=== PATIENT | male | born 1985 | race Caucasian/White ===

== ENCOUNTER 2018-03-22 18:52 | Emergency (ER) | payer SELFPAY ==
[~2018-03-22] VITALS: Ht 167.6 cm; Wt 102.5 kg
[2018-03-22 18:57] VITALS: BP 119/21
--- NOTE | 2018-03-22 19:10 | NUR ---
33 Y/O M BIB WITH C/O CHEST PAIN SINCE THIS MORNING, PT STATES WHEN HE LAYS DOWN, HE FEELS TIGHTNESS AND WHEEZING WITH COUGH, VSS, EVEN AND UNLABORED BREATHING AT THIS TIME, PT O2 AT 97% AT THIS TIME. PT DENIES N/V/D; SKIN IS INTACT, PINK/WARM/DRY; AAOX4, PERRL, WITH EVEN AND STEADY GAIT; LUNGS CLEAR BL, BREATHING UNLABORED; HR EVEN AND REGULAR, BL PERIPHERAL PULSES PRESENT; BS ACTIVE X4, NO TENDERNESS TO PALPATION, NO HEPATOSPLENOMEGALLY PALPATED, RESONANT TO PERCUSSION; PT STATES 8/10 PAIN AT THIS TIME; VSS; PATIENT POSITIONED FOR COMFORT; HOB ELEVATED; BEDRAILS UP X2; BED DOWN. PMH: NONE RX: NYQUIL
--- NOTE | 2018-03-22 19:10 | NUR ---
EKG BEING PREFORMED BY RAYMUNDO GUZMAN AT BEDSIDE.
--- NOTE | 2018-03-22 19:29 | NUR ---
DR. HERNÁNDEZ AT BEDSIDE EVALUATING.
[2018-03-22] MEDS ORDERED: ALBUTEROL SULFATE/IPRATROPIU 3 ML SOL IH ONE (19:35)
--- NOTE | 2018-03-22 19:39 | NUR ---
flu swab collected at this time and taken to lab.
--- NOTE | 2018-03-22 19:40 | NUR ---
transport technician at bedside.
--- NOTE | 2018-03-22 19:49 | NUR ---
rt at bedside.
--- NOTE | 2018-03-22 20:09 | NUR ---
PT ASKING FOR A BLANKET AT THIS TIME. PT STATES HE HAS CHILLS AND IS VISIBLE SHAKING. PT TEMPERATURE IS 101.9 AT THIS TIME. BERNY DELACRUZ NOTIFIED.
[2018-03-22] MEDS ORDERED: ACETAMINOPHEN EXTRA STRENGTH 500 MG TAB PO ONE (20:10)
[2018-03-22] MEDS ORDERED: IBUPROFEN 400 MG TAB PO ONE (20:10)
[2018-03-22 20:39] VITALS: BP 120/78
--- NOTE | 2018-03-22 20:40 | NUR ---
Patient discharged with v/s stable. Written and verbal after care instructions given and explained. Patient alert, oriented and verbalized understanding of instructions. Ambulatory with steady gait. All questions addressed prior to discharge. ID band removed. Patient advised to follow up with PMD. Rx of TAMIFLU, ALBUTEROL given. Patient educated on indication of medication including possible reaction and side effects. Opportunity to ask questions provided and answered.
== END 2018-03-22 20:40 | disposition home or self-care (01) ==
LOC: MED 18:52
DX: J11.1 Influenza due to unidentified influenza virus with other respiratory manifestations (principal); J45.909 Unspecified asthma, uncomplicated
CPT/HCPCS: 36415; 71045; 87804; 93005; 99284; J7620; Q0092